=== PATIENT | male | born 1940 | race Caucasian/White ===

== ENCOUNTER 2022-02-10 09:24 | Outpatient (CLI) | payer OTHER | END 2022-02-10 09:25 | disposition home or self-care (01) | LOC: LABBT 09:24 | PROVIDERS: ATTEND Specialist | DX: Z01.818 Encounter for other preprocedural examination (principal); K40.90 Unilateral inguinal hernia, without obstruction or gangrene, not specified as recurrent; Z20.822 Contact with and (suspected) exposure to COVID-19 | CPT/HCPCS: 93005; 93010; U0003; U0005 ==

== ENCOUNTER 2022-02-13 06:52 | Day surgery (SDC) | payer OTHER ==
[2022-02-13] MEDS ORDERED: Tamsulosin HCl 0.4 MG CAP ONE (07:26)
[2022-02-13] MEDS ORDERED: Ketorolac Tromethamine 30 MG/ML VIAL ONE (07:34)
[2022-02-13] MEDS ORDERED: Acetaminophen 500 MG TAB ONE (07:34)
[2022-02-13 08:14] LABS: #Basophils 0.1 thou/uL (0.0-0.2); #Eosinphils 0.5 thou/uL (0.0-0.7); #Lymphocytes 2.2 thou/uL (1.20-3.40); #Monocytes 0.5 thou/uL (0.11-0.59); #Neutrophils 3.4 thou/uL (1.40-6.50); %Basophils 1.3 % (0.0-1.0); %Eosinophils 6.8 % (0.0-10.0); %Lymphocytes 32.8 % (21.0-51.0); %Monocytes 7.6 % (0.0-10.0); %Neutrophils 51.5 % (42.0-75.0); Hemoglobin 13.9 g/dL (14.0-18.0); Mean Corpuscular HGB CONC 31.6 g/dL (32.0-36.0); Mean Corpuscular Volume 88.7 fL (78.0-98.0); Mean Platelet Volume 7.5 fL (7.4-10.4); Platelet Count 279 thou/uL (130-400); RBC Distribution Width 14.1 % (11.5-14.5); Red Blood Cell (RBC) Count 4.96 mill/uL (4.70-6.10); White Blood Cell (WBC) Count 6.6 thou/uL (4.8-10.8)
[2022-02-13] MEDS ORDERED: Lidocaine 1% w/Epinephrine 1:100K 30 ML VIAL ONE (08:19)
[2022-02-13] MEDS ORDERED: Bupivacaine 0.25% HCL 30 ML VIAL ONE (08:19)
[2022-02-13 08:30] LABS: Anion Gap 13 mmol/L (10-20); BUN (Urea Nitrogen) 16 mg/dL (8.4-25.7); Calc. Creatinine Clearance 0 mL/min (70-130); Carbon Dioxide 24 mmol/L (23-31); Chloride 108 mmol/L (98-107); Glucose 98 mg/dL (83-110); Potassium 3.5 mmol/L (3.5-5.1); Sodium 141 mmol/L (136-145)
[2022-02-13] MEDS ORDERED: fentaNYL Citrate/PF 100 MCG/2 ML SYRINGE ONE (09:09)
[2022-02-13] MEDS ORDERED: SUGAMMADEX SODIUM 200 MG/2 ML VIAL ONE (09:10)
[2022-02-13] MEDS ORDERED: CEFAZOLIN 2 GM VIAL ONE (09:23)
[2022-02-13] MEDS ORDERED: Sodium Chloride 0.9% 100 ML ONE (09:23)
[2022-02-13] MEDS ORDERED: Ondansetron PF 4 MG/2 ML Vial ONE (12:09)
== END 2022-02-13 17:23 | disposition home or self-care (01) ==
LOC: SDC 06:52
PROVIDERS: ATTEND Specialist
PROC: 0YU64JZ Supplement Left Inguinal Region with Synthetic Substitute, Percutaneous Endoscopic Approach (ICD-10-PCS; principal; 2022-02-13)
DX: K40.90 Unilateral inguinal hernia, without obstruction or gangrene, not specified as recurrent (principal); K41.90 Unilateral femoral hernia, without obstruction or gangrene, not specified as recurrent; K21.9 Gastro-esophageal reflux disease without esophagitis
CPT/HCPCS: 80048; 85025; C1781; J0690; J1885; J2405; J3490; S0020